=== PATIENT | male | born 1980 | race Two or more races ===

== ENCOUNTER → 2024-09-23 | Outpatient (CLI) | payer BC, SELFPAY ==
[2024-09-23 14:11] LABS: Collection Type, Urine Clean Catch; Squamous Epithelial Cell,Urine 0 /hpf (0-5)
[2024-09-23 14:35] LABS: Bilirubin,Urine Negative (Negative); Blood,Urine 1+ (Negative); Clarity,Urine Clear (Clear/Hazy); Color,Urine Lt-Yellow (Lt Yel-Yel); Culture Indicated,Urine Not Indicated; Glucose, Urine Negative (Negative); Ketones,Urine Negative (Negative); Leukocyte Esterase,Urine Negative (Negative); Nitrite,Urine Negative (Negative); PH,Urine 6.5 (5.0-7.0); Protein,Urine Negative (Neg - Trace); RBC,Urine 4 /hpf (0-3); Specific Gravity,Urine 1.015 (1.001-1.035); Urobilinogen,Urine Negative mg/dL (0.0-1.0); WBC,Urine 1 /hpf (0-5)
[2024-09-23 14:42] LABS: Alanine Aminotransferase 39 U/L (10-49); Alkaline Phosphatase 62 U/L (46-116); Aspartate Amino Transferase 25 U/L (0-34); Bilirubin,Direct 0.2 mg/dL (0.0-0.3); Bilirubin,Total 0.5 mg/dL (0.3-1.2); Total Protein 6.8 gm/dL (5.7-8.2)
== END | disposition home or self-care (01) ==
LOC: COPL 13:39
PROVIDERS: PCP Family Medicine; Referring Provider Family Medicine; Visit Provider Family Medicine
DX: B35.1 Tinea unguium (principal); N39.0 Urinary tract infection, site not specified; Z13.89 Encounter for screening for other disorder
CPT/HCPCS: 36415; 80076; 81001

== ENCOUNTER → 2024-09-29 | Outpatient (CLI) | payer BC, SELFPAY ==
--- NOTE | 2024-09-29 16:30 | XR_ITS ---
Examination: Retroperitoneal ultrasound, complete Technique: Multiple high resolution grayscale images of the retroperitoneum obtained, including kidneys and bladder. Exam date and time:September 29, 2024 1634 hours INDICATIONS: Right flank pain beginning 5 days ago FINDINGS: Right kidney 9.8 x 5.9 x 6.1 cm cortex 1.5 cm Left kidney 10.5 x 6.2 x 5.9 cm cortex 1.6 cm Mild bilateral hydronephrosis Mild bilateral renal parenchymal scar formation No bladder mass or bladder calculi Bladder prevoid volume 190 cc Prostate volume 27 cc calcifications no prostate nodules IMPRESSION: Mild bilateral hydronephrosis
== END | disposition home or self-care (01) ==
LOC: CDIM 16:14
PROVIDERS: PCP Family Medicine; Referring Provider Family Medicine; Visit Provider Family Medicine
DX: N13.30 Unspecified hydronephrosis (principal)
CPT/HCPCS: 76770

== ENCOUNTER 2024-12-02 17:13 | Emergency (ER) | payer BC, SELFPAY ==
--- NOTE | 2024-12-02 | XR_ITS ---
Examination: CT abdomen and pelvis without contrast. Coronal 3-D reconstructions. Sagittal 2-D reconstructions. Date and time of exam:December 02, 2024 1846 hrs. Indications: Onset right flank pain today CTDI: vol (mGy): 7.66 DLP: (mGycm): 415 Technique: Axial images of the abdomen have been obtained, 3 mm slice thickness Intravenous contrast material has not been administered. Low dose protocols were performed. One or more of the following dose reduction techniques were used; automated exposure control, adjustment of the mA and/or KV according to patient size, use of iterative reconstruction technique. Findings: No focal liver or splenic lesion No gallstones No pancreatic or adrenal mass Mild right hydronephrosis secondary to 2 mm distal right ureterovesical calculus Normal appendix No bowel obstruction No bladder mass or bladder calculi Advanced disc narrowing L5-S1 Impression: Mild right hydronephrosis secondary to 2 mm distal right ureteral calculus
[2024-12-02 17:14] VITALS: BMI 28.1
[2024-12-02 17:52] VITALS: BP 128/75; PULSE 65; RESP 18; TEMP 36.6; O2SAT 99; BMI 27.1
--- NOTE | 2024-12-02 18:30 | PD.EDRME ---
Rapid Medical Screening Exam RME Arrival date/time: 12/02/24 17:13 Chief Complaint: General Adult/Misc Complain Time Seen by Provider: 12/02/24 17:59 Vital signs: Vital Signs Temperature 97.9 F 12/02/24 17:52 Pulse Rate 65 12/02/24 17:52 Respiratory Rate 18 12/02/24 17:52 Blood Pressure 128/75 12/02/24 17:52 Pulse Oximetry (%) 99 12/02/24 17:52 Oxygen Delivery Method Room Air 12/02/24 17:52 Vital signs reviewed by provider: Yes RME Narrative: 44-year-old male presents to the ED with a complaint of right flank pain today. He has a previous history of renal calculi, approximately 2 months ago. He denies fever or chills, nausea or vomiting, diarrhea or constipation. He is having difficulty with urination with scant amounts. He denies hematuria. The pain waxes and wanes. Labs and CT abdomen and pelvis without contrast are ordered and pending. I have greeted and performed a focused initial assessment of this patient. A comprehensive ED assessment and evaluation of the patient, analysis of all test results, and completion of the medical decision making process will be conducted by additional ED providers.
[2024-12-02 18:54] LABS: Collection Type, Urine Clean Catch
[2024-12-02 18:59] LABS: Basophils % (Auto) 0 % (0-2.5); Eosinophils # (Auto) 0.1 Thou/mm3 (0.0-0.5); Eosinophils % (Auto) 1 % (0-10); Hematocrit 40.9 % (41.0-53.0); Hemoglobin 14.3 g/dL (13.5-16.0); Immature Granulocytes % (Auto) 0 % (0-0); Immature Granulocytes Auto 0.02 Thou/mm3 (0.00-0.00); Lymphocytes # (Auto) 2.2 Thou/mm3 (1.0-4.8); Lymphocytes % (Auto) 21 % (10-50); Mean Corpuscular Hemoglobin 29.2 pg (25.0-35.0); Mean Corpuscular Volume 84 fL (80-100); Monocytes # (Auto) 0.8 Thou/mm3 (0.0-0.8); Monocytes % (Auto) 7 % (0-12); Neutrophils # (Auto) 7.5 Thou/mm3 (1.8-7.7); Neutrophils % (Auto) 71 % (37-80); Nucleated Red Blood Cell % 0 /100 WBC (0); Platelet Count 206 Thou/mm3 (140-440); RDW Standard Deviation 40.2 fL (35.1-43.9); White Blood Count 10.6 Thou/mm3 (3.8-10.6)
[2024-12-02 19:04] LABS: Bilirubin,Urine Negative (Negative); Blood,Urine Trace (Negative); Clarity,Urine Clear (Clear/Hazy); Color,Urine Colorless (Lt Yel-Yel); Glucose, Urine Negative (Negative); Ketones,Urine Negative (Negative); Leukocyte Esterase,Urine Negative (Negative); Nitrite,Urine Negative (Negative); Protein,Urine Negative (Neg - Trace); RBC,Urine 1 /hpf (0-3); Specific Gravity,Urine 1.008 (1.001-1.035); Squamous Epithelial Cell,Urine < 1 /hpf (0-5); Urobilinogen,Urine Negative mg/dL (0.0-1.0); WBC,Urine < 1 /hpf (0-5)
[2024-12-02 19:15] LABS: Parathyroid Hormone Intact 92.1 pg/ml (18.5-88.0)
[2024-12-02 19:17] LABS: Alanine Aminotransferase 14 U/L (10-49); Albumin, Serum 4.1 gm/dL (3.5-5.0); Albumin/Globulin Ratio 1.4 (1.2-2.2); Alkaline Phosphatase 60 U/L (46-116); Anion Gap 8 (7-16); Aspartate Amino Transferase 23 U/L (0-34); BUN/Creatinine Ratio 9 Ratio (12-20); Bilirubin,Total 0.5 mg/dL (0.3-1.2); Blood Urea Nitrogen 14 mg/dL (9-23); Calcium 8.6 mg/dL (8.3-10.6); Calcium (Corrected) 8.6 mg/dL (8.5-10.1); Carbon Dioxide 23.7 mMol/L (20.0-31.0); Chloride 108 mMol/L (98-107); Creatinine (Component) 1.5 mg/dL (0.6-1.3); Estimated Creatinine Clearance 62.8 mL/min (>60); Globulin 2.9 gm/dL (2.3-3.5); Glucose 107 mg/dL (74-106); Osmolality,Calculated 279 (275-295); Potassium 3.9 mMol/L (3.4-5.1); Sodium 140 mMol/L (136-145); Uric Acid 5.1 mg/dL (3.7-9.2); eGFR 59 See Note
[2024-12-02 23:01] VITALS: PULSE 78; RESP 18; O2SAT 98
--- NOTE | 2024-12-03 02:49 | EDNOTE_ITS ---
ED General RME/HPI General Chief complaint: General Adult/Misc Complain Stated complaint: R) FLANK PAIN SINCE THIS AM Time Seen by Provider: 12/02/24 17:59 Arrival date/time: 12/02/24 17:13 44-year-old male presents to the ED with a complaint of right flank pain today with radiation into his right testicle. He has a previous history of renal calculi, approximately 2 months ago. He denies fever or chills, nausea or vomiting, diarrhea or constipation. He is having difficulty with urination with scant amounts. He denies hematuria. The pain waxes and wanes. Mode of arrival: ambulatory Limitations: no limitations RME / HPI RME / HPI narrative: 44-year-old male presents to the ED with a complaint of right flank pain today. He has a previous history of renal calculi, approximately 2 months ago. He denies fever or chills, nausea or vomiting, diarrhea or constipation. He is having difficulty with urination with scant amounts. He denies hematuria. The pain waxes and wanes. Labs and CT abdomen and pelvis without contrast are ordered and pending. I have greeted and performed a focused initial assessment of this patient. A comprehensive ED assessment and evaluation of the patient, analysis of all test results, and completion of the medical decision making process will be conducted by additional ED providers. Related Data Previous Rx's ?Medication ?Instructions ?Recorded lidocaine 5 % topical patch 1 patch topical Q24H #15 e a 12/02/24 (Lidoderm) meloxicam 15 mg tablet 15 mg PO QDAY #20 tabs 12/02 tamsulosin 0.4 mg capsule (Flomax) 0.4 mg PO QDAY #30 caps 12/02/24 Allergies Allergy/AdvReac Type Severity Reaction Status Date / Time No Known Allergies Allergy Verified 12/02/24 17:16 Review of Systems Review of Systems Systems Reviewed: All systems reviewed, normal except as documented Narrative Review of Systems: Denies recent illness with Fever, chills, cough, upper respiratory symptoms, nausea, vomiting, or diarrhea. ED Exam General Limitations: Present no limitations General appearance: Present alert and in no apparent distress Head Head exam: Present normocephalic and normal inspection Eye Eye exam: Present normal appearance; Absent scleral icterus or conjunctival injection ENT ENT exam: Present normal exam Neck Neck exam: Present normal inspection Chest Chest inspection: Present normal inspection and symmetric chest wall rise Respiratory Respiratory exam: Present normal lung sounds bilaterally; Absent respiratory distress Cardiovascular Cardiovascular exam: Present regular rate, normal rhythm and normal heart sounds Abdominal Exam Abdominal exam: Present soft, tenderness (Mild right flank) and normal bowel sounds; Absent distention Rectal Exam Rectal exam: Present deferred Extremities Exam Extremities exam: Present normal inspection Back Exam Back exam: Present full ROM and CVA tenderness (R) Neurological Exam Neurological exam: Present alert and oriented X3 Psychiatric Psychiatric exam: Present normal affect and normal mood Skin Skin exam: Present warm, dry, intact and normal color Course Course Course Narrative: 44-year-old male presents to the ED with a complaint of right flank pain today with radiation into his right testicle. He has a previous history of renal calculi, approximately 2 months ago. He denies fever or chills, nausea or vomiting, diarrhea or constipation. He is having difficulty with urination with scant amounts. He denies hematuria. The pain waxes and wanes. Exam reveals Right CVA tenderness extending to right flank and right mid abdomen with extension of his discomfort into his right testes. Labs, UA, CT Abd/Pel obtained. CBC is normal. CMP reveals a mildly elevated creatinine of 1.5, eGFR 59, Uric acid normal 5.1, LFT's normal, PTH mildly elevated at 92.1, urinalysis with trace blood, and no bacteria. CT abdomen/pelvis reveals: Mild right hydronephrosis secondary to 2 mm distal right ureteral calculus Findings: No focal liver or splenic lesion No gallstones No pancreatic or adrenal mass Mild right hydronephrosis secondary to 2 mm distal right ureterovesical calculus Normal appendix No bowel obstruction No bladder mass or bladder calculi Advanced disc narrowing L5-S1 Impression: Mild right hydronephrosis secondary to 2 mm distal right ureteral calculus Quality Measures none Orders Category Date Time Status CT abdomen pelvis wo con Stat Exams 12/02/24 Completed CBC Stat Lab 12/02/24 18:40 Completed CMP [Comprehensive Metabolic Panel] Stat Lab 12/02/24 18:40 Completed PTH [Parathyroid Hormone Intact] Stat Lab 12/02/24 18:40 Completed UA [Urinalysis] Stat Lab 12/02/24 18:29 Completed Uric Acid Stat Lab 12/02/24 18:40 Completed Urine Culture Stat Lab 12/02/24 18:29 Received Vital Signs Vital signs: Vital Signs Temperature 97.9 F 12/02/24 17:52 Pulse Rate 65 12/02/24 17:52 Respiratory Rate 18 12/02/24 17:52 Blood Pressure 128/75 12/02/24 17:52 Pulse Oximetry (%) 99 12/02/24 17:52 Oxygen Delivery Method Room Air 12/02/24 17:52 MDM Patient data External records reviewed:: None Clinical information provided by:: patient Social determinants that could affect healthcare access:: none Patient has the following chronic illnesses:: Previous history of Renal Calculi. How is presenting disease/condition affected by chronic disease/condition?: c aused by Evaluation data The following diagnostics were reviewed and interpreted by me:: lab results and radiology exam(s) Lab and/or radiology exams considered but not ordered:: Renal US Interpretation Summary: CBC is normal. CMP reveals a mildly elevated creatinine of 1.5, eGFR 59, Uric acid normal 5.1, LFT's normal, PTH mildly elevated at 92.1, urinalysis with trace blood, and no bacteria. CT abdomen/pelvis reveals: Mild right hydronephrosis secondary to 2 mm distal right ureteral calculus Medications Medications considered but not ordered:: Morphine, Lasix Medication administrations:: Toradol 30mg IM Consultations Consultation(s) initiated? (list below): No Diagnosis Differential Diagnosis ED Complaint MDM: Obstr. Pyelo, Obstr. Uropathy, Hydronephrosis, Renal or Ureteral Calculi Most likely diagnosis given after review of the tests above:: Recurrent Renal Calculi with Mild Hydronephrosis Admission Indicated Admission indicated?: not indicated Explain why admission is indicated or not indicated:: Stable for discharge Admission Request Was there a request for admission?: No Disposition Plan Disposition Plan: Discharge Discharge Attestation Discharge Attestation: The patient and all family members were given an opportunity to ask questions and understood the discharge instructions. Discharge instructions specifically effects, indications for sooner follow up or return to the emergency department, and the expected course of current diagnosis. Patient condition: Stable Medical Decision Making MDM Narrative MDM Narrative: 44-year-old male presents to the ED with a complaint of right flank pain today with radiation into his right testicle. He has a previous history of renal calculi, approximately 2 months ago. He denies fever or chills, nausea or vomiting, diarrhea or constipation. He is having difficulty with urination with scant amounts. He denies hematuria. The pain waxes and wanes. Exam reveals Right CVA tenderness extending to right flank and right mid abdomen with extension of his discomfort into his right testes. Labs, UA, CT Abd/Pel obtained. CBC is normal. CMP reveals a mildly elevated creatinine of 1.5, eGFR 59, Uric acid normal 5.1, LFT's normal, PTH mildly elevated at 92.1, urinalysis with trace blood, and no bacteria. CT abdomen/pelvis reveals: Mild right hydronephrosis secondary to 2 mm distal right ureteral calculus Differential Diagnosis Differential Diagnosis: Obstr. Pyelo, Obstr. Uropathy, Hydronephrosis, Renal or Ureteral Calculi Medical Records Medical records reviewed: Yes I reviewed the patient's medical records. Lab Data Lab results reviewed: Yes I reviewed the patient's lab results. Lab results narrative: CBC is normal. CMP reveals a mildly elevated creatinine of 1.5, eGFR 59, Uric acid normal 5.1, LFT's normal, PTH mildly elevated at 92.1, urinalysis with trace blood, and no bacteria. 12/02/24 18:40 12/02/24 18:40 Labs: Lab Results 12/02/24 12/02/24 Range/Units 18:29 18:40 WBC 10.6 (3.8-10.6) Thou/mm3 RBC 4.90 (4.50-5.90) Miln/mm3 Hgb 14.3 (13.5-16.0) g/dL Hct 40.9 L (41.0-53.0) % MCV 84 (80-100) fL MCH 29.2 (25.0-35.0) pg MCHC 35.0 (31.0-37.0) g/dl RDW Std Deviation 40.2 (35.1-43.9) fL Plt Count 206 (140-440) Thou/mm3 Neut % (Auto) 71 (37-80) % Lymph % (Auto) 21 (10-50) % Hand % (Auto) 7 (0-12) % Eos % (Auto) 1 (0-10) % Baso % (Auto) 0 (0-2.5) % Neut # (Auto) 7.5 (1.8-7.7) Thou/mm3 Lymph # (Auto) 2.2 (1.0-4.8) Thou/mm3 Hand # (Auto) 0.8 (0.0-0.8) Thou/mm3 Eos # (Auto) 0.1 (0.0-0.5) Thou/mm3 Baso # (Auto) 0.0 (0.0-0.2) Thou/mm3 Immature Gran # (Auto) 0.02 H (0.00-0.00) Thou/mm3 Absolute Nucleated RBC 0.00 (0.00-0.00) Thou/mm3 Immature Gran % 0 (0-0) % Nucleated RBC % 0 (0) /100 WBC Sodium 140 (136-145) mMol/L Potassium 3.9 (3.4-5.1) mMol/L Chloride 108 H (98-107) mMol/L Carbon Dioxide 23.7 (20.0-31.0) mMol/L Anion Gap 8 (7-16) BUN 14 (9-23) mg/dL Creatinine 1.5 H (0.6-1.3) mg/dL Estim Creat Clear Calc 62.8 (>60) mL/min eGFR 59 L (60 - ) See Note BUN/Creatinine Ratio 9 L (12-20) Ratio Glucose 107 H (74-106) mg/dL Calculated Osmolality 279 (275-295) Uric Acid 5.1 (3.7-9.2) mg/dL Calcium 8.6 (8.3-10.6) mg/dL Corrected Calcium 8.6 (8.5-10.1) mg/dL Total Bilirubin 0.5 (0.3-1.2) mg/dL AST 23 (0-34) U/L ALT 14 (10-49) U/L Alkaline Phosphatase 60 (46-116) U/L Total Protein 7.0 (5.7-8.2) gm/dL Albumin 4.1 (3.5-5.0) gm/dL Globulin 2.9 (2.3-3.5) gm/dL Albumin/Globulin Ratio 1.4 (1.2-2.2) PTH Intact 92.1 H (18.5-88.0) pg/ml Ur Collection Type Clean Catch Urine Color Colorless A (Lt Yel-Yel) Urine Clarity Clear (Clear/Hazy) Urine pH 6.0 (5.0-7.0) Ur Specific [place] 1.008 (1.001-1.035) Urine Protein Negative (Neg - Trace) Urine Glucose (UA) Negative (Negative) Urine Ketones Negative (Negative) Urine Blood Trace (Negative) Urine Nitrite Negative (Negative) Urine Bilirubin Negative (Negative) Urine Urobilinogen (Auto) Negative (0.0-1.0) mg/dL Ur Leukocyte Esterase Negative (Negative) Urine RBC 1 (0-3) /hpf Urine WBC < 1 (0-5) /hpf Ur Squamous Epith Cells < 1 (0-5) /hpf Urine Bacteria None (None) Radiology Data Radiology results reviewed: Yes I reviewed the patient's radiology results. Radiology results narrative: CT abdomen/pelvis reveals: Mild right hydronephrosis secondary to 2 mm distal right ureteral calculus Core Measures Measure exclusions: not indicated Discharge Plan Plan Patient Disposition: HOME (Self Care) Disposition Comment: STABLE Prescriptions/Referrals Prescriptions/Med Rec: New tamsulosin [Flomax] 0.4 mg capsule 0.4 mg PO QDAY Qty: 30 0RF meloxicam 15 mg tablet 15 mg PO QDAY Qty: 20 0RF lidocaine [Lidoderm] 5 % adhesive patch,medicated 1 patch topical Q24H Qty: 15 0RF Rx Instructions: leave on most painful area for up to 12 hrs Referrals: Joel (PCP)Jhonny MD [Primary Care Provider] - In 1 week Problem List Clinical Impression: Renal calculi Patient/Caregiver Discharge Instructions Education Materials: Understanding Kidney Stones, Treating Kidney Stones: Medicines, Preventing Kidney Stones, ED Kidney Stone w/ Colic Additional Instructions: Follow-up with your primary care physician in 24 to 48 hours. Return to the ED for any new or worsening symptoms. Print Language: Croatian Stand Alone Forms: Treva Award Info., Patient Portal Info Letter PA/CUSTODIAL SERVICES MANAGER Supervising Physician PA/CUSTODIAL SERVICES MANAGER Supervising Physician: Dr May
== END 2024-12-02 23:03 | disposition home or self-care (01) ==
PROVIDERS: Physician Assistant; Emergency Provider Emergency Medicine; PCP Family Medicine
DX: N13.2 Hydronephrosis with renal and ureteral calculous obstruction (principal)
CPT/HCPCS: 36415; 74176; 80053; 81001; 83970; 84550; 85025; 87086; 99284